=== PATIENT | male | born 1960 | race Caucasian/White ===

== ENCOUNTER → 2024-04-30 11:45 | Emergency (ER) | payer OTHER, SELFPAY ==
[2024-04-30 11:46] VITALS: BP 184/90
[2024-04-30 12:42] VITALS: BP 125/71
[2024-04-30 12:48] VITALS: BMI 23.5
[2024-04-30 13:00] VITALS: BP 154/91
[2024-04-30 13:16] LABS: % Basophils 0.4 % (0-2); % Immature Granulocytes 0.4 % (0-0.5); % Lymphocytes 21.6 % (20.5-51.1); % Monocytes 11.5 % (1.7-9.3); % Neutrophils 65.1 % (42.2-75.2); Absolute Eosinophils 0.1 10^3/uL (0-0.7); Absolute Lymphocytes 1.1 10^3/uL (1.2-3.4); Absolute Monocytes 0.6 10^3/uL (0.1-0.6); Absolute Neutrophils 3.2 10^3/uL (1.4-6.5); Hematocrit 47.9 % (39.0-52.0); Hemoglobin 16.8 g/dL (13.0-18.0); Mean Corp Hgb Conc. 35.1 g/dL (33.0-37.0); Mean Corpuscular Hgb 30.3 pg (27.0-31.0); Mean Corpuscular Volume 86.3 fL (80.0-94.0); Mean Platelet Volume 9.9 fL (7.4-10.4); Nucleated Red Blood Cells % 0 % (-); Platelet Count 163 10^3/uL (130-400); Red Blood Cell Count 5.55 10^6/uL (4.70-6.10); Red Cell Dist. Width 12.8 % (11.5-14.5); White Blood Cell Count 4.9 10^3/uL (4.8-10.8)
[2024-04-30 13:32] LABS: ALT (SGPT) 34 U/L (0-50); AST (SGOT) 31 U/L (17-59); Alkaline Phosphatase 56 U/L (38-126); Blood Urea Nitrogen 20 mg/dl (9-20); Calcium 9.9 mg/dl (8.4-10.2); Carbon Dioxide 27 mmol/L (22-30); Chloride 101 mmol/L (98-107); Estimated Creatinine Clearance 75 ml/min; Glucose 147 mg/dl (70-99); Potassium 4.3 mmol/L (3.5-5.1); Sodium 140 mmol/L (135-145); Total Bilirubin 0.8 mg/dl (0.2-1.3); Total Protein 7.2 g/dl (6.3-8.2); eGFR > 60.00
--- NOTE | 2024-04-30 14:42 | ED.GENMED ---
History of Present Illness
General
Chief Complaint: Abdominal Pain
Source: patient
Exam Limitations: none
Time Seen by Provider: 04/30/24 12:36
Nursing documentation reviewed up to this point in time: agreed with
History of Present Illness
History of Present Illness:
Patient status post cholecystectomy 15 years ago, presents to ED secondary to persistent right flank/right upper abdominal pain over the past 4 days. Denies fever or chills. Denies nausea, vomiting, or diarrhea. Denies back pain. Denies
difficulty with urination. Denies recent change in medications or diet. Denies trauma. Denies recent change in activities. Denies recent travel or surgery. Denies leg pain or swelling. Abdominal pain is different than when he had his
gallbladder removed. Denies sick contact. Denies recent change in diet. Denies chest pain. Denies shortness of breath. Pain appears to be worse when he is standing up or moving in certain directions.
Past History
Past History
ED Past Medical History: HTN, Hypercholesterolemia and NIDDM
ED Past Surgical History: None
Review of Systems
Review of Systems
Allergies reviewed?: Yes
All Other Systems: ROS reviewed and negative except as documented in HPI and ROS
Constitutional: Reports no symptoms
Respiratory: Reports no symptoms; Denies trouble breathing
Cardiac: Reports no symptoms; Denies chest pain
ABD/GI: Reports abdominal pain; Denies nausea, vomiting or diarrhea
: Reports flank pain; Denies dysuria, difficulty voiding or dark urine
Musculoskeletal: Reports other (rib pain)
Skin: Reports no symptoms
Neurological: Reports no symptoms
Phy Exam
Physical Exam
Physical Exam:
Physical Exam
General: no apparent distress, not acutely ill. afebrile
Head: nc/at. eomi
Neck: supple. normal range of motion.
Heart: s1/s2 regular rate and rhythm, no murmur. equal radial pulses.
Lungs: no acute respiratory distress. clear bilaterally. moderate right lower rib tenderness to palpation at level of rib #10-12, without ecchymosis/swelling/erythema.
Abdomen: normal bowel sounds. mild right flank pain. no cva tenderness.
Neuro: alert and oriented. no focal neurological deficits
Skin: no rash
Psychiatric: well kept. interactive and cooperative
Extremities: no edema. no calf tenderness.
Course
Orders/Labs/Results
Orders:
Orders
04/30/24 13:07
Complete Blood Count/With Diff Urgent
Comprehensive Metabolic Panel Urgent
Lipase Urgent
04/30/24 13:10
Add On- LAB Urgent
Tests Added?: lipase
04/30/24 13:14
CR Ribs-right 3 Vw W/pa Chest* Urgent
Comment:
Reason For Exam: rib pain
US Abdomen Complete/Upper Urgent
Comment:
Reason For Exam: RUQ pain
04/30/24 13:15
Ketorolac [Toradol] 30 mg IV NOW STA
04/30/24 14:25
D-Dimer Urgent
04/30/24 14:44
Urinalysis Reflex To Culture Urgent
Date Specimen was Collected: 04/30/24
Time Specimen was Collected: 13:10
Abnormal Lab Results
04/30/24 04/30/24
13:07 14:44
Absolute Lymphs (auto) 1.1 L 10^3/uL
(1.2-3.4)
Monocytes % 11.5 H %
(1.7-9.3)
Glucose 147 H mg/dl
(70-99)
Lipase 331 H U/L
(23-300)
Urine Glucose 3+ A
(Negative)
04/30/24 13:07
04/30/24 13:07
Vital Signs
Initial and Last Documented VS:
Initial Vital Signs
Temp Pulse Resp BP Pulse Ox
98.2 F 91 16 184/90 99
04/30/24 11:46 04/30/24 11:46 04/30/24 11:46 04/30/24 11:46 04/30/24 11:46
Last Documented Vital Signs
Temp Pulse Resp BP Pulse Ox
98.2 F 72 16 154/91 100
04/30/24 11:46 04/30/24 13:30 04/30/24 13:30 04/30/24 13:00 04/30/24 14:41
MDM/Problems Addressed
MDM/Problems Addressed:
Patient with an unremarkable workup in ED, including blood work and multiple imaging studies. While reviewing test results, patient does recall having lifted luggage as recently, suggesting possible musculoskeletal pain as etiology behind his
presenting symptoms. As such, patient will be discharged home at this time, with recommendation to rest, Tylenol/Motrin for relief, along with warm compress application. Patient advised to expect to be uncomfortable over the next couple of days,
but with gradual improvement over time, without any further trauma. Advised to return to ED with worsening symptoms, i.e. fever/worsening pain/vomiting/shortness of breath. Patient expresses understanding at time of discharge.
*Critical Care Note
Total Time (30-74mins, 75-104mins- exclusive of procedures): Not Applicable
ED Attending Note
-
Portions of this chart may have been created with voice recognition software.� Occasional wrong word or��sound alike� substitutions may have occurred due to the inherent limitations of voice recognition software.
Discharge Plan
Departure
Patient Disposition: Home (Routine Discharge)
Date of Disposition: 04/30/24
Time of Disposition: 15:23
Patient with high blood pressure during this ER visit?: Yes
Discharge Problem:
Musculoskeletal chest pain
Instructions: Musculoskeletal Pain
Referrals:
Saúl Turner DO [Family Provider] -
Activity Restrictions/Additional Instructions:
As discussed, please follow-up with your primary care physician for reevaluation. Please consider return to ED with worsening symptoms, i.e. fever/worsening pain/shortness of breath.
Interventions
Interventions:
*Risk Screen - Suicide Last Done: 04/30/24 11:46
*General Assessment Last Done: 04/30/24 11:46
*Neglect/Abuse Screening Last Done: 04/30/24 11:46
*ED COVID-19 Vaccine History Last Done: 04/30/24 11:46
Discharge Date and Time
Print Language: IRISH
[2024-04-30 14:44] VITALS: BP 142/83
[2024-04-30 14:47] LABS: Lipase 331 U/L (23-300)
[2024-04-30 14:57] LABS: D-Dimer < 0.27 ug/mlFEU (0.00-0.50)
[2024-04-30 15:00] VITALS: BP 142/79
[2024-04-30 15:08] LABS: Urine Albumin Trace (Neg - Trace); Urine Bilirubin Negative (Negative); Urine Character Clear (Clear); Urine Color Yellow; Urine Glucose 3+ (Negative); Urine Ketone Negative (Negative); Urine Leukocyte Negative (Negative); Urine Nitrite Negative (Negative); Urine Occult Blood Negative (Negative); Urine Specific Gravity 1.015 (<1.030); Urine Urobilinogen Negative (Neg - 1+)
== END | disposition home or self-care (01) ==
LOC: EMR 11:45
PROVIDERS: EMERGENCY PHYSICIAN Emergency Medicine; FAMILY PHYSICIAN Family Medicine
DX: R07.89 Other chest pain (principal); R10.11 Right upper quadrant pain; R07.81 Pleurodynia; E11.9 Type 2 diabetes mellitus without complications; E78.00 Pure hypercholesterolemia, unspecified; I10 Essential (primary) hypertension; Z79.84 Long term (current) use of oral hypoglycemic drugs; Z90.49 Acquired absence of other specified parts of digestive tract
CPT/HCPCS: 99284; 71101; 76700; 80053; 81003; 83690; 85025; 85379

== ENCOUNTER → 2024-05-09 09:06 | Outpatient (REF) | payer OTHER, SELFPAY | LOC: HWRAD 09:06 | PROVIDERS: ATTENDING PHYSICIAN Family Medicine | DX: R10.11 Right upper quadrant pain (principal); K76.0 Fatty (change of) liver, not elsewhere classified | CPT/HCPCS: 74178; Q9967 ==